=== PATIENT | male | born 1940 | race Caucasian/White ===

== ENCOUNTER → 2016-10-18 | Day surgery (SDC) | payer MEDICARE ==
[~2016-10-18] MED LIST: ACETAMINOPHEN/HYDROcodone 325 MG/5 MG TAB ONE; BACITRACIN IM FOR SOLN 50,000 UNIT VIAL ONE; BUPIVACAINE/EPINEPHRINE 0.25% PF 30 ML VIAL ONE; GENTAMICIN SULFATE 80 MG/2 ML VIAL ONE; KETOROLAC TROMETHAMINE 30 MG/ML (IVP) VIAL IV PUSH ONE; LACTATED RINGER'S 1000 ML INJ 1,000 ML ONE; MORPHINE SULFATE 4 MG/ML INJ ONE; ONDANSETRON HCL 4 MG/2 ML VIAL IV PUSH ONE; PROPOFOL 200 MG/20 ML AMP IV ONE; SODIUM CHLOR 0.9% 250 ML INJ 250 ML IV ONE; SODIUM CHLORIDE 0.9% 20 ML VIAL ONE; VANCOMYCIN HCL 1000 MG VIAL ONE; ceFAZolin 2 GM PREMIX 50 ML ONE; ceFAZolin INJ 1,000 MG VIAL ONE
--- NOTE | 2016-10-18 10:42 | TN ---
cc: KAIDEN PARKINSON DATE OF SURGERY 10/18/2016 PREOPERATIVE DIAGNOSIS Right knee medial compartment osteoarthritis, chondromalacia patella. POSTOPERATIVE DIAGNOSIS Right knee medial compartment osteoarthritis, chondromalacia patella. PROCEDURE Right knee medial unicondylar artery arthroplasty, partial patellectomy SURGEON Jose Parkinson MD ASSESSMENT Neela Parkinson MD, Jeanna Munguia PA-C SPECIMENS None ESTIMATED BLOOD LOSS Minimum COMPLICATIONS None ANESTHESIA General DRAINS One TOURNIQUET TIME 49 minutes at 250 mmHg CONDITION Stable PLAN OF ACTIVITY Per orders. PROCEDURE My anesthesiology physician assistant Daquan Parkinson MD was present for the entire surgical case. He was medically necessary for the entire case because of the complexity case and to facilitate the performance of the procedure. The DOWEL PIN MAN at the back table was not a skill set for this case to manipulate, e.g., the multiple different types of soft tissue retractors, trial implants, permanent implants including bone cement. The patient was brought into the operating room and had satisfactory general endotracheal anesthesia by the Department of Anesthesia. The right lower extremity was prepped and draped in usual sterile manner. The extremity was exsanguinated using Kendall wrap and tourniquet inflated to 250 mmHg. Anterior medial exposure to the knee was made. All bleeders coagulated. A paramedian capsulotomy was performed. Patient was found to have osteoarthritis involving the medial compartment and chondromalacia of the medial facet of the patella. Partial patellectomy performed using an oscillating saw. Using the [employer]el[employer] unicondylar arthroplasty system, a guide was used for the posterior condyle cut of the femur. Approximately 6 to 7 mm was resected. A bur was then used to contour of the proximal tibia to accept a #2 6.5 mm tibial component. The proximal tibia was prepared to accept a #3, 6.5 mm tibial component and the distal femur was prepared to accept a #2 right medial femoral component. Trial reduction made in flexion/extension. The patient was found to have excellent balance with both flexion/extension. All trial components were removed. Preparation for cementing was made. One package of high viscosity bone cement was used. First the tibial component was cemented which was a #3, 6.5 mm tibial component, followed by the femoral component which was a #4 right medial femoral component. All excess bone cement was removed. The knee was irrigated with copious amounts of sterile saline. The wound itself was dry. The knee was injected with 60 cc of 0.25% Marcaine with epinephrine to provide postoperative hemostasis and analgesia. The tourniquet was deflated. All bleeders individually coagulated. The wound itself was dry. The wound was closed over an eighth inch Hemovac drain. The capsule was repaired using #2 Tycron suture and the subcutaneous layer with 2-0 Vicryl and skin was approximated with a running subcuticular 3-0 Vicryl. Steri-Strips and Mastisol was used for the skin. Sterile dressing applied. The patient tolerated the procedure well and arrived in the Recovery Room in table and satisfactory condition. MD CASEY Lam/MIMI /9:53 AM /10:10 AM
== END | disposition home or self-care (01) ==
LOC: ESDC 06:40
PROVIDERS: ATTEND Orthopaedic Surgery Orthopaedic Surgery of the Spine
DX: M17.11 Unilateral primary osteoarthritis, right knee (principal); M22.41 Chondromalacia patellae, right knee
CPT/HCPCS: 01400; 27446; C1776; J0690; J1580; J1885; J2270; J2405; J3010; J3370; J7050; J7120